=== PATIENT | male | born 1990 | race Asian ===

== ENCOUNTER 2024-11-29 16:51 | Emergency (ER) | payer MEDICAID, OTHER ==
[~2024-11-29] VITALS: Ht 177.8 cm; Wt 90.9 kg
[2024-11-29 16:52] VITALS: TEMP 98.6
[2024-11-29] MEDS: METOCLOPRAMIDE HCL 5 MG/ML 2 ML VIAL IVP ONE (17:40)
[2024-11-29] MEDS: SODIUM CHLORIDE 0.9% 1,000 ML IV ONE (17:41)
[2024-11-29] MEDS: KETOROLAC TROMETHAMINE 30 MG/ML VIAL IVP ONE (17:41)
[2024-11-29] MEDS: DiphenhydrAMINE HCL 50 MG/ML VIAL IVP ONE ×2 (17:41→21:09)
[2024-11-29] MEDS: VALPROATE SODIUM 500 MG in DEXTROSE 5%-WATER 50 ML IV ONE (18:02)
[2024-11-29 18:23] LABS: ANION GAP 7 mmol/L (8-16); CALCIUM, TOTAL 8.1 mg/dL (8.8-10.5); CARBON DIOXIDE 30 mmol/L (22-29); CHLORIDE 101 mmol/L (98-107); CREATININE 1.02 mg/dL (0.60-1.30); GLOMERULAR FILTR. RATE CALC > 60 mL/min (>60); GLUCOSE,RANDOM 115 mg/dL (70-110); POTASSIUM 3.5 mmol/L (3.5-5.1); SODIUM SERUM 138 mmol/L (136-145); UREA NITROGEN, BLOOD 12 mg/dL (7-18)
[2024-11-29 18:25] LABS: BASOPHILS % (AUTO) 0.3 % (0.0-2.0); EOSINOPHILS % (AUTO) 1.1 % (1.0-6.0); HEMATOCRIT 42.6 % (41-53); HEMOGLOBIN 14.1 g/dL (13.5-17.5); LYMPHOCYTES # (AUTO) 1.9 K/uL (1.0-4.8); LYMPHOCYTES % (AUTO) 23.3 % (22.0-44.0); MEAN CORPUSCULAR HEMOGLOBIN 29.3 pg (26.0-34.0); MEAN CORPUSCULAR HGB CONC 33.2 G/dL (31.0-37.0); MEAN CORPUSCULAR VOLUME 88 fL (80-100); MONOCYTES # (AUTO) 0.6 K/uL (0.1-1.0); MONOCYTES % (AUTO) 7.8 % (2.0-9.0); NEUTROPHILS # (AUTO) 5.5 K/uL (1.8-7.7); NEUTROPHILS % (AUTO) 67.5 % (40.0-70.0); PLATELET COUNT (AUTO) 274 K/uL (150-450); RED BLOOD CELL COUNT(AUTO) 4.82 MIL/uL (4.50-5.90); RED CELL DISTRIBUTION WIDTH 13.7 % (11.5-14.5); WHITE BLOOD COUNT (AUTO) 8.1 K/uL (4.5-11.0)
[2024-11-29] MEDS: HYDROmorphone HCL 2 MG/ML SYRINGE IVP ONE (21:09)
[2024-11-29] MEDS: ONDANSETRON HCL 4 MG/2 ML VIAL IVP ONE (21:21)
[2024-11-29 22:45] VITALS: BP 149/85; PULSE 71; RESP 18; O2SAT 99
[2024-11-29] MEDS ORDERED: IBUP-1554 PO (22:51)
[2024-11-29] MEDS ORDERED: ONDA-104 PO (22:51)
[2024-11-29] MEDS ORDERED: HYDR-4062 PO (22:51)
[2024-11-29] MEDS: HYDROCODONE/ACETAMINOPHEN 5-325 MG TABLET PO ONE (22:58)
== END 2024-11-29 23:05 | disposition home or self-care (01) ==
LOC: EMS 16:51
DX: G43.909 Migraine, unspecified, not intractable, without status migrainosus (principal); R19.7 Diarrhea, unspecified
CPT/HCPCS: 99285; 96375; 96365; 70450; 80048; 85025; 36415; 96376; J1200; J1171; J1885; J2765; J2405; J3490; J7060; J7030